=== PATIENT | female | born 1955 | race Two or more races ===

== ENCOUNTER 2025-08-03 07:13 | Outpatient (CLI) | payer OTHER | END 2025-08-03 07:15 | disposition home or self-care (01) | LOC: NUCLEAR 07:13 | PROVIDERS: ATTEND Internal Medicine Gastroenterology | DX: K31.84 Gastroparesis (principal); K21.9 Gastro-esophageal reflux disease without esophagitis | CPT/HCPCS: 78264; A9541 ==